=== PATIENT | male | born 1980 | race Caucasian/White ===

== ENCOUNTER 2021-11-19 04:48 | Emergency (ER) | payer OTHER, MEDICAID ==
[2021-11-19] MEDS ORDERED: HYDROCODON-ACE1 EA10 PO (06:31)
== END 2021-11-19 07:58 | disposition home or self-care (01) ==
LOC: ED 04:48
DX: S06.0X0A Concussion without loss of consciousness, initial encounter (principal); S39.012A Strain of muscle, fascia and tendon of lower back, initial encounter; S16.1XXA Strain of muscle, fascia and tendon at neck level, initial encounter; S63.501A Unspecified sprain of right wrist, initial encounter; R10.819 Abdominal tenderness, unspecified site; V48.6XXA Car passenger injured in noncollision transport accident in traffic accident, initial encounter; Y92.411 Interstate highway as the place of occurrence of the external cause
CPT/HCPCS: 36415; 70450; 71045; 71260; 72125; 73110; 74177; 80053; 81001; 82150; 82553; 83605; 83690; 85025; 86850; 86900; 86901; A9270; G0480; J1170; J2405; J7030; Q9967

== ENCOUNTER 2021-11-22 19:43 | Observation (INO) | payer MEDICAID ==
[~2021-11-22] VITALS: Ht 182.9 cm; Wt 73.4 kg
[~2021-11-22 19:43] MED LIST: HYDROCODON-ACE1 EA10 PO
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
--- NOTE | 2021-11-26 13:56 | EKG ---
[facility] [address] [place], [place] [address] Signed Normal sinus rhythm Voltage criteria for left ventricular hypertrophy ( R in aVL , Sokolow-Meneses , [place] product ) Septal infarct , age undetermined Inferior infarct , age undetermined ST \T\ Marked T wave abnormality, consider anterolateral ischemia Prolonged QT Abnormal ECG No previous ECGs available Confirmed by KRYSTYNA SOTELO MD ([id number] on 11/26/2021 1:56:01 PM Electronically Signed By: KRYSTYNA SOTELO MD 11/26/21 1356 PATIENT NAME: SEMAJ IVEY Electrocardiogram DATE OF : 76 PHYSICIAN: KRYSTYNA SOTELO MD REPORT #: [id number] REPORT IS CONFIDENTIAL AND NOT TO BE RELEASED WITHOUT AUTHORIZATION
== END 2021-11-23 16:45 | disposition home or self-care (01) ==
LOC: ED 19:43 → CCU 19:44
PROVIDERS: ADMIT Internal Medicine; ATTEND Internal Medicine
DX: F11.23 Opioid dependence with withdrawal (principal); F19.239 Other psychoactive substance dependence with withdrawal, unspecified; E87.3 Alkalosis; E87.6 Hypokalemia; E86.0 Dehydration; Z88.1 Allergy status to other antibiotic agents; Z72.0 Tobacco use; Z20.822 Contact with and (suspected) exposure to COVID-19
CPT/HCPCS: 36415; 71045; 80048; 80053; 81001; 82553; 82803; 83605; 83735; 83880; 84484; 85025; 85379; 85610; 85730; 87502; 93005; 93010; 93970; 96372; C9803; G0378; J1650; J2405; J3480; J7120; J7121; Q0177; U0003